=== PATIENT | male | born 1970 | race African-American/Black ===

== ENCOUNTER 2022-05-24 14:13 | Inpatient (IN) | payer OTHER ==
[2022-05-24 14:43] VITALS: BMI 27.3
[2022-05-24] MEDS ORDERED: guaiFENesin 600 MG TABLET.ER (FP) PO PRN (19:03)
[2022-05-24] MEDS ORDERED: MAG HYDROX/AL HYDROX/SIMETH 30 ML UNIT-DOSE CUP PO PRN (19:03)
[2022-05-24] MEDS ORDERED: BENZONATATE 200 MG CAPSULE PO PRN (19:03)
[2022-05-24] MEDS ORDERED: MAGNESIUM HYDROX 2400MG/30ML ORAL SUSPENSION 30 ML CUP PO PRN (19:03)
[2022-05-24] MEDS ORDERED: IBUPROFEN 400 MG TABLET (FP) PO PRN (19:03)
[2022-05-24] MEDS ORDERED: ACETAMINOPHEN 325 MG TABLET (FP) PO PRN (19:03)
[2022-05-24] MEDS ORDERED: NICOTINE 10 MG CARTRIDGE (INHALER) IH PRN (19:03)
[2022-05-24] MEDS ORDERED: AMMONIUM LACTATE 12% LOTION 225 GM BOTTLE TP PRN (19:03)
[2022-05-24] MEDS ORDERED: BENZOCAINE/MENTHOL (CHLORASEPTIC ) LOZENGE MM PRN (19:03)
[2022-05-24] MEDS ORDERED: LOPERAMIDE HCL 2 MG CAPSULE PO PRN (19:03)
[2022-05-24] MEDS ORDERED: IBUPROFEN 600 MG TABLET (FP) PO PRN (19:03)
[2022-05-24] MEDS ORDERED: POLYETHYLENE GLYCOL (HEALTHYLAX) 3350 17 GM PACKET PO PRN (19:03)
[2022-05-24] MEDS ORDERED: COLLOIDAL OATMEAL 1 BAR EACH TP PRN (19:03)
[2022-05-24] MEDS: BACITRACIN 0.9 GM PACKET TP SCH (22:00)
[2022-05-24] MEDS: MELATONIN 5 MG TABLETS PO SCH ×2 (22:00→23:10)
[2022-05-24] MEDS: THIAMINE HCL 100 MG TABLET (FP) PO SCH (22:00)
[2022-05-24] MEDS: hydrOXYzine PAMOATE 25 MG CAPSULE (FP) PO PRN (22:28)
[2022-05-25] MEDS: PRENATAL VITAMINS W/ FOLIC ACID TABLET (FP) PO SCH (09:05)
[2022-05-25] MEDS: BACITRACIN 0.9 GM PACKET TP SCH ×2 (09:05→22:19)
[2022-05-25 11:05] LABS: POTASSIUM 4.3 mmol/L (3.5-5.1)
[2022-05-25 11:06] LABS: HEMATOCRIT 39.9 % (35.4-49); HEMOGLOBIN 13.4 GM/dL (11.7-16.9); MCH 29.3 pg (25.7-33.7); MCHC 33.6 g/dl (32.0-35.9); MEAN PLT VOLUME 8.7 fl (7.5-11.1); PLATELET COUNT 209 10^3/uL (134-434); RBC 4.59 M/mm3 (4.00-5.60); RDW 13.5 % (11.9-15.9); WHITE BLOOD COUNT 6.5 K/mm3 (4.0-10.0)
[2022-05-25 11:09] LABS: CALCIUM 8.6 mg/dL (8.5-10.1)
[2022-05-25 11:10] LABS: ALBUMIN 3.4 g/dl (3.4-5.0); BLOOD UREA NITROGEN 15.5 mg/dL (7-18)
[2022-05-25 11:13] LABS: CREATININE 1.1 mg/dL (0.55-1.3)
[2022-05-25 11:15] LABS: BILIRUBIN,TOTAL 0.6 mg/dL (0.2-1); TOT PROT 6.8 g/dl (6.4-8.2)
[2022-05-25] MEDS ORDERED: LOSARTAN 50MG/HCTZ 12.5MG 1 TAB PO SCH (12:30)
[2022-05-25 12:34] LABS: SYPHILIS W/ RPR CONF NON-REACTIVE (NONREACTIVE)
[2022-05-25] MEDS: HYDROCHLOROTHIAZIDE 25 MG TABLET (FP) PO SCH (13:30)
[2022-05-25] MEDS ORDERED: LOSARTAN POTASSIUM 50 MG TABLET PO SCH (14:15)
[2022-05-25] MEDS: THIAMINE HCL 100 MG TABLET (FP) PO SCH (22:19)
[2022-05-25] MEDS: MELATONIN 5 MG TABLETS PO SCH (22:19)
[2022-05-26] MEDS: BACITRACIN 0.9 GM PACKET TP SCH ×2 (09:07→21:59)
[2022-05-26] MEDS: HYDROCHLOROTHIAZIDE 25 MG TABLET (FP) PO SCH (09:08)
[2022-05-26] MEDS: PRENATAL VITAMINS W/ FOLIC ACID TABLET (FP) PO SCH (09:08)
[2022-05-26] MEDS: LOSARTAN POTASSIUM 50 MG TABLET PO SCH (09:08)
[2022-05-26] MEDS ORDERED: LOSARTAN POTASSIUM 50 MG TABLET PO SCH (10:00)
[2022-05-26 12:03] LABS: URINE APPEARANCE CLEAR; URINE BILIRUBIN NEGATIVE (NEGATIVE); URINE COLOR YELLOW; URINE GLUCOSE (UA) NEGATIVE (NEGATIVE); URINE KETONE NEGATIVE (NEGATIVE); URINE LEUK ESTERASE NEGATIVE (NEGATIVE); URINE NITRITE NEGATIVE (NEGATIVE); URINE PROTEIN NEGATIVE (NEGATIVE); URINE UROBILINOGEN 0.2 mg/dL (0.2-1.0)
[2022-05-26] MEDS: hydrOXYzine PAMOATE 25 MG CAPSULE (FP) PO PRN (21:59)
[2022-05-26] MEDS: THIAMINE HCL 100 MG TABLET (FP) PO SCH (21:59)
[2022-05-26] MEDS: MELATONIN 5 MG TABLETS PO SCH (21:59)
[2022-05-27] MEDS: LOSARTAN POTASSIUM 50 MG TABLET PO SCH (09:46)
[2022-05-27] MEDS: BACITRACIN 0.9 GM PACKET TP SCH ×2 (09:46→21:29)
[2022-05-27] MEDS: PRENATAL VITAMINS W/ FOLIC ACID TABLET (FP) PO SCH (09:46)
[2022-05-27] MEDS: HYDROCHLOROTHIAZIDE 25 MG TABLET (FP) PO SCH (09:47)
[2022-05-27] MEDS: SUVOREXANT 10 MG TABLET PO PRN (21:29)
[2022-05-27] MEDS: THIAMINE HCL 100 MG TABLET (FP) PO SCH (21:29)
[2022-05-28] MEDS: LOSARTAN POTASSIUM 50 MG TABLET PO SCH (09:39)
[2022-05-28] MEDS: HYDROCHLOROTHIAZIDE 25 MG TABLET (FP) PO SCH (09:39)
[2022-05-28] MEDS: PRENATAL VITAMINS W/ FOLIC ACID TABLET (FP) PO SCH (09:39)
[2022-05-28] MEDS: BACITRACIN 0.9 GM PACKET TP SCH ×2 (09:39→21:31)
[2022-05-28] MEDS: THIAMINE HCL 100 MG TABLET (FP) PO SCH (21:32)
[2022-05-28] MEDS: SUVOREXANT 10 MG TABLET PO PRN (21:34)
[2022-05-29] MEDS: BACITRACIN 0.9 GM PACKET TP SCH ×2 (09:31→21:15)
[2022-05-29] MEDS: HYDROCHLOROTHIAZIDE 25 MG TABLET (FP) PO SCH (09:32)
[2022-05-29] MEDS: LOSARTAN POTASSIUM 50 MG TABLET PO SCH (09:32)
[2022-05-29] MEDS: PRENATAL VITAMINS W/ FOLIC ACID TABLET (FP) PO SCH (09:32)
[2022-05-29] MEDS: THIAMINE HCL 100 MG TABLET (FP) PO SCH (21:15)
[2022-05-29] MEDS: SUVOREXANT 10 MG TABLET PO PRN (21:16)
[2022-05-30] MEDS: LOSARTAN POTASSIUM 50 MG TABLET PO SCH (10:14)
[2022-05-30] MEDS: BACITRACIN 0.9 GM PACKET TP SCH ×2 (10:14→21:15)
[2022-05-30] MEDS: PRENATAL VITAMINS W/ FOLIC ACID TABLET (FP) PO SCH (10:14)
[2022-05-30] MEDS: HYDROCHLOROTHIAZIDE 25 MG TABLET (FP) PO SCH (10:15)
[2022-05-30] MEDS: SUVOREXANT 10 MG TABLET PO PRN (21:13)
[2022-05-30] MEDS: THIAMINE HCL 100 MG TABLET (FP) PO SCH (21:14)
[2022-05-31] MEDS: HYDROCHLOROTHIAZIDE 25 MG TABLET (FP) PO SCH (09:46)
[2022-05-31] MEDS: LOSARTAN POTASSIUM 50 MG TABLET PO SCH (09:46)
[2022-05-31] MEDS: BACITRACIN 0.9 GM PACKET TP SCH ×2 (09:46→21:34)
[2022-05-31] MEDS: PRENATAL VITAMINS W/ FOLIC ACID TABLET (FP) PO SCH (09:46)
[2022-05-31] MEDS: hydrOXYzine PAMOATE 25 MG CAPSULE (FP) PO PRN (21:34)
[2022-05-31] MEDS: THIAMINE HCL 100 MG TABLET (FP) PO SCH (21:34)
[2022-06-01] MEDS: PRENATAL VITAMINS W/ FOLIC ACID TABLET (FP) PO SCH (09:45)
[2022-06-01] MEDS: HYDROCHLOROTHIAZIDE 25 MG TABLET (FP) PO SCH (09:45)
[2022-06-01] MEDS: LOSARTAN POTASSIUM 50 MG TABLET PO SCH (09:45)
[2022-06-01] MEDS: SUVOREXANT 10 MG TABLET PO PRN (21:24)
[2022-06-01] MEDS: THIAMINE HCL 100 MG TABLET (FP) PO SCH (21:25)
[2022-06-02] MEDS: PRENATAL VITAMINS W/ FOLIC ACID TABLET (FP) PO SCH (09:43)
[2022-06-02] MEDS: LOSARTAN POTASSIUM 50 MG TABLET PO SCH (09:43)
[2022-06-02] MEDS: HYDROCHLOROTHIAZIDE 25 MG TABLET (FP) PO SCH (09:43)
[2022-06-02] MEDS: THIAMINE HCL 100 MG TABLET (FP) PO SCH (21:32)
[2022-06-02] MEDS: SUVOREXANT 10 MG TABLET PO PRN (21:32)
[2022-06-03] MEDS: HYDROCHLOROTHIAZIDE 25 MG TABLET (FP) PO SCH (09:32)
[2022-06-03] MEDS: PRENATAL VITAMINS W/ FOLIC ACID TABLET (FP) PO SCH (09:32)
[2022-06-03] MEDS: LOSARTAN POTASSIUM 50 MG TABLET PO SCH (09:32)
[2022-06-03] MEDS: THIAMINE HCL 100 MG TABLET (FP) PO SCH (21:23)
[2022-06-03] MEDS: SUVOREXANT 10 MG TABLET PO PRN (21:23)
[2022-06-04] MEDS: LOSARTAN POTASSIUM 50 MG TABLET PO SCH (09:40)
[2022-06-04] MEDS: PRENATAL VITAMINS W/ FOLIC ACID TABLET (FP) PO SCH (09:40)
[2022-06-04] MEDS: HYDROCHLOROTHIAZIDE 25 MG TABLET (FP) PO SCH (09:40)
[2022-06-04] MEDS: SUVOREXANT 10 MG TABLET PO PRN (21:35)
[2022-06-04] MEDS: THIAMINE HCL 100 MG TABLET (FP) PO SCH (21:35)
[2022-06-05] MEDS: PRENATAL VITAMINS W/ FOLIC ACID TABLET (FP) PO SCH (09:36)
[2022-06-05] MEDS: LOSARTAN POTASSIUM 50 MG TABLET PO SCH (09:36)
[2022-06-05] MEDS: HYDROCHLOROTHIAZIDE 25 MG TABLET (FP) PO SCH (09:36)
[2022-06-05] MEDS: SUVOREXANT 10 MG TABLET PO PRN (21:15)
[2022-06-05] MEDS: THIAMINE HCL 100 MG TABLET (FP) PO SCH (21:15)
[2022-06-06] MEDS: LOSARTAN POTASSIUM 50 MG TABLET PO SCH (10:01)
[2022-06-06] MEDS: HYDROCHLOROTHIAZIDE 25 MG TABLET (FP) PO SCH (10:01)
[2022-06-06] MEDS: PRENATAL VITAMINS W/ FOLIC ACID TABLET (FP) PO SCH (10:02)
[2022-06-06] MEDS: THIAMINE HCL 100 MG TABLET (FP) PO SCH (21:12)
[2022-06-06] MEDS: SUVOREXANT 10 MG TABLET PO PRN (21:12)
[2022-06-07] MEDS: PRENATAL VITAMINS W/ FOLIC ACID TABLET (FP) PO SCH (09:34)
[2022-06-07] MEDS: HYDROCHLOROTHIAZIDE 25 MG TABLET (FP) PO SCH (09:34)
[2022-06-07] MEDS: LOSARTAN POTASSIUM 50 MG TABLET PO SCH (09:34)
[2022-06-07] MEDS: THIAMINE HCL 100 MG TABLET (FP) PO SCH (21:24)
[2022-06-07] MEDS: SUVOREXANT 10 MG TABLET PO PRN (21:25)
[2022-06-08] MEDS: HYDROCHLOROTHIAZIDE 25 MG TABLET (FP) PO SCH (09:59)
[2022-06-08] MEDS: LOSARTAN POTASSIUM 50 MG TABLET PO SCH (09:59)
[2022-06-08] MEDS: PRENATAL VITAMINS W/ FOLIC ACID TABLET (FP) PO SCH (09:59)
[2022-06-08] MEDS: SUVOREXANT 10 MG TABLET PO PRN (21:18)
[2022-06-08] MEDS: THIAMINE HCL 100 MG TABLET (FP) PO SCH (21:19)
[2022-06-09] MEDS: HYDROCHLOROTHIAZIDE 25 MG TABLET (FP) PO SCH (09:53)
[2022-06-09] MEDS: PRENATAL VITAMINS W/ FOLIC ACID TABLET (FP) PO SCH (09:53)
[2022-06-09] MEDS: LOSARTAN POTASSIUM 50 MG TABLET PO SCH (09:53)
[2022-06-09] MEDS ORDERED: LORATADINE 10 MG TABLET PO SCH (14:15)
[2022-06-09] MEDS: SUVOREXANT 10 MG TABLET PO PRN (21:12)
[2022-06-09] MEDS: THIAMINE HCL 100 MG TABLET (FP) PO SCH (21:12)
[2022-06-09] MEDS ORDERED: CHLORHEXIDINE GLUCONATE 0.12% 15ML CUP MM SCH (22:00)
[2022-06-10] MEDS: LOSARTAN POTASSIUM 50 MG TABLET PO SCH (10:02)
[2022-06-10] MEDS: HYDROCHLOROTHIAZIDE 25 MG TABLET (FP) PO SCH (10:02)
[2022-06-10] MEDS: PRENATAL VITAMINS W/ FOLIC ACID TABLET (FP) PO SCH (10:02)
[2022-06-10] MEDS: THIAMINE HCL 100 MG TABLET (FP) PO SCH (21:07)
[2022-06-10] MEDS: SUVOREXANT 10 MG TABLET PO PRN (21:08)
[2022-06-11] MEDS: LOSARTAN POTASSIUM 50 MG TABLET PO SCH (09:52)
[2022-06-11] MEDS: HYDROCHLOROTHIAZIDE 25 MG TABLET (FP) PO SCH (09:52)
[2022-06-11] MEDS: PRENATAL VITAMINS W/ FOLIC ACID TABLET (FP) PO SCH (09:52)
[2022-06-11] MEDS: THIAMINE HCL 100 MG TABLET (FP) PO SCH (21:29)
[2022-06-11] MEDS: SUVOREXANT 10 MG TABLET PO PRN (21:30)
[2022-06-12] MEDS: LOSARTAN POTASSIUM 50 MG TABLET PO SCH (09:41)
[2022-06-12] MEDS: HYDROCHLOROTHIAZIDE 25 MG TABLET (FP) PO SCH (09:41)
[2022-06-12] MEDS: PRENATAL VITAMINS W/ FOLIC ACID TABLET (FP) PO SCH (09:41)
[2022-06-12] MEDS: THIAMINE HCL 100 MG TABLET (FP) PO SCH (21:12)
[2022-06-12] MEDS: SUVOREXANT 10 MG TABLET PO PRN (21:12)
[2022-06-13] MEDS: PRENATAL VITAMINS W/ FOLIC ACID TABLET (FP) PO SCH (09:52)
[2022-06-13] MEDS: LOSARTAN POTASSIUM 50 MG TABLET PO SCH (09:53)
[2022-06-13] MEDS: HYDROCHLOROTHIAZIDE 25 MG TABLET (FP) PO SCH (09:53)
[2022-06-13] MEDS: THIAMINE HCL 100 MG TABLET (FP) PO SCH (21:39)
[2022-06-13] MEDS: SUVOREXANT 10 MG TABLET PO PRN (21:40)
[2022-06-14] MEDS: HYDROCHLOROTHIAZIDE 25 MG TABLET (FP) PO SCH (10:10)
[2022-06-14] MEDS: LOSARTAN POTASSIUM 50 MG TABLET PO SCH (10:10)
[2022-06-14] MEDS: PRENATAL VITAMINS W/ FOLIC ACID TABLET (FP) PO SCH (10:10)
[2022-06-14] MEDS: THIAMINE HCL 100 MG TABLET (FP) PO SCH (21:11)
[2022-06-14] MEDS: SUVOREXANT 10 MG TABLET PO PRN (21:12)
[2022-06-15] MEDS: LOSARTAN POTASSIUM 50 MG TABLET PO SCH (09:47)
[2022-06-15] MEDS: HYDROCHLOROTHIAZIDE 25 MG TABLET (FP) PO SCH (09:47)
[2022-06-15] MEDS: PRENATAL VITAMINS W/ FOLIC ACID TABLET (FP) PO SCH (09:47)
[2022-06-15] MEDS: THIAMINE HCL 100 MG TABLET (FP) PO SCH (21:25)
[2022-06-15] MEDS: SUVOREXANT 10 MG TABLET PO PRN (23:36)
[2022-06-16] MEDS: PRENATAL VITAMINS W/ FOLIC ACID TABLET (FP) PO SCH (10:00)
[2022-06-16] MEDS: HYDROCHLOROTHIAZIDE 25 MG TABLET (FP) PO SCH (10:00)
[2022-06-16] MEDS: LOSARTAN POTASSIUM 50 MG TABLET PO SCH (10:00)
[2022-06-16] MEDS: THIAMINE HCL 100 MG TABLET (FP) PO SCH (21:06)
[2022-06-16] MEDS: SUVOREXANT 10 MG TABLET PO PRN (21:07)
[2022-06-17] MEDS: LOSARTAN POTASSIUM 50 MG TABLET PO SCH (09:28)
[2022-06-17] MEDS: HYDROCHLOROTHIAZIDE 25 MG TABLET (FP) PO SCH (09:28)
[2022-06-17] MEDS: PRENATAL VITAMINS W/ FOLIC ACID TABLET (FP) PO SCH (09:28)
[2022-06-17] MEDS: SUVOREXANT 10 MG TABLET PO PRN (21:21)
[2022-06-17] MEDS: THIAMINE HCL 100 MG TABLET (FP) PO SCH (21:21)
[2022-06-18] MEDS: LOSARTAN POTASSIUM 50 MG TABLET PO SCH (09:48)
[2022-06-18] MEDS: HYDROCHLOROTHIAZIDE 25 MG TABLET (FP) PO SCH (09:48)
[2022-06-18] MEDS: PRENATAL VITAMINS W/ FOLIC ACID TABLET (FP) PO SCH (09:48)
[2022-06-18] MEDS: THIAMINE HCL 100 MG TABLET (FP) PO SCH (21:16)
[2022-06-18] MEDS: SUVOREXANT 10 MG TABLET PO PRN (21:17)
[2022-06-19] MEDS: HYDROCHLOROTHIAZIDE 25 MG TABLET (FP) PO SCH (09:49)
[2022-06-19] MEDS: LOSARTAN POTASSIUM 50 MG TABLET PO SCH (09:49)
[2022-06-19] MEDS: PRENATAL VITAMINS W/ FOLIC ACID TABLET (FP) PO SCH (09:50)
[2022-06-19] MEDS: THIAMINE HCL 100 MG TABLET (FP) PO SCH (21:17)
[2022-06-19] MEDS: SUVOREXANT 10 MG TABLET PO PRN (21:17)
[2022-06-20 06:48] VITALS: RESP 18; TEMP 98.1
[2022-06-20 09:17] VITALS: BP 134/63; PULSE 86
[2022-06-20] MEDS: PRENATAL VITAMINS W/ FOLIC ACID TABLET (FP) PO SCH (09:38)
[2022-06-20] MEDS: HYDROCHLOROTHIAZIDE 25 MG TABLET (FP) PO SCH (09:38)
[2022-06-20] MEDS: LOSARTAN POTASSIUM 50 MG TABLET PO SCH (09:38)
== END 2022-06-20 09:52 | disposition home or self-care (01) | DRG 772 ==
LOC: YASAS 14:13 → Y3E 21:09
PROVIDERS: ADMIT Allergy & Immunology; ATTEND Psychiatry & Neurology Pain Medicine
PROC: HZ42ZZZ Group Counseling for Substance Abuse Treatment, Cognitive-Behavioral (ICD-10-PCS; principal; 2022-05-24)
DX: F14.20 Cocaine dependence, uncomplicated (principal); F12.20 Cannabis dependence, uncomplicated; F17.210 Nicotine dependence, cigarettes, uncomplicated; F19.282 Other psychoactive substance dependence with psychoactive substance-induced sleep disorder; I10 Essential (primary) hypertension; R63.4 Abnormal weight loss; Z68.27 Body mass index [BMI] 27.0-27.9, adult; Z87.09 Personal history of other diseases of the respiratory system
CPT/HCPCS: 36415; 71046-TC-FY; 80053; 81003; 82962; 85027; 86780; 86803; 87811; C9803-CS; U0003; U0005